=== PATIENT | female | born 1985 | race Hispanic/Latino ===

== ENCOUNTER 2019-12-16 20:21 | Emergency (ER) | payer OTHER ==
[~2019-12-16] VITALS: Ht 152.4 cm; Wt 113.4 kg
--- OUTSIDE RECORDS SUMMARY | 2019-12-16 20:23 | XMS REPORT ---
[facility] Phone Unavailable Care Team Providers Care Ophthalmic Lens Inspector Name Role Phone Unavailable Unavailable Payers Payer Name Policy Type Policy Number Effective Date Expiration Date Problems This patient has no known problems. Allergies, Adverse Reactions, Alerts Allergy Name Allergy Type Status Severity Reaction(s) Onset Date Inactive Date Treating Clinician Comments No Known Allergies DA Active U 2019-08-16 00:00:00 Medications This patient has no known medications. Encounters Start Date/Time End Date/Time Encounter Type Admission Type Attending Clinicians Care Facility Care Department Encounter ID 2018-06-04 00:00:00 2018-06-05 00:00:00 [id number]
[2019-12-16] MEDS ORDERED: TETANUS/DIPHTHERIA TOX ADULT 0.5 ML SYR IM STA (20:54)
[2019-12-16] MEDS ORDERED: IBUPROFEN 200 MG TAB PO STA (20:54)
[2019-12-16] MEDS ORDERED: LIDOCAINE HCL 2% LOCAL 20 ML VIAL INJ STA (20:54)
[2019-12-16] MEDS ORDERED: MUPIROCIN 2% OINT 22 GM TUBE TOP ONE (21:00)
[2019-12-16] MEDS ORDERED: ACETAMINOPHEN 325 MG TAB PO ONE (21:00)
[2019-12-16] MEDS ORDERED: NEOMYCIN/POLYMYX/BACITR OINT 0.9 GM PKT ONE (21:22)
[2019-12-16] MEDS ORDERED: TETANUS/DIPHTHERIA TOX ADULT 0.5 ML SYR ONE (21:23)
[2019-12-16] MEDS ORDERED: ACETAMINOPHEN 325 MG TAB ONE (21:23)
[2019-12-16] MEDS ORDERED: IBUPROFEN 200 MG TAB ONE ×2 (21:23→21:24)
[2019-12-17 00:17] VITALS: BP 126/64
== END 2019-12-17 00:20 | disposition home or self-care (01) ==
LOC: FSED 20:21
DX: S61.211A Laceration without foreign body of left index finger without damage to nail, initial encounter (principal); W26.8XXA Contact with other sharp object(s), not elsewhere classified, initial encounter; Y99.0 Civilian activity done for income or pay
CPT/HCPCS: 12001; 90471; 90714; 99283; J2001